=== PATIENT | male | born 1995 | race Caucasian/White ===

== ENCOUNTER 2016-10-25 15:35 | Emergency (ER) | payer MEDICAID, OTHER ==
[2016-10-25 15:45] VITALS: BP 122/57
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
== END 2016-10-25 16:40 | disposition home or self-care (01) ==
LOC: FB.ED 15:35
DX: S62.025A Nondisplaced fracture of middle third of navicular [scaphoid] bone of left wrist, initial encounter for closed fracture (principal); V19.88XA Pedal cyclist (driver) (passenger) injured in other specified transport accidents, initial encounter; Y93.55 Activity, bike riding; Y92.410 Unspecified street and highway as the place of occurrence of the external cause; F17.210 Nicotine dependence, cigarettes, uncomplicated; F41.9 Anxiety disorder, unspecified; Z79.899 Other long term (current) drug therapy
CPT/HCPCS: 29105; 73110-LT; 73130-LT; 99283

== ENCOUNTER 2018-12-17 02:47 | Emergency (ER) | payer SELFPAY ==
--- NOTE | 2018-12-17 04:05 | EDM.PDOC ---
ED HPI GENERAL MEDICAL PROBLEM - General Stated Complaint: mental health Time Seen by Provider: 12/17/18 03:40 Source of Information: Reports: Patient History Limitations: Reports: No Limitations - History of Present Illness INITIAL COMMENTS - FREE TEXT/NARRATIVE: 23-year-old male who is brought to the emergency department via [place] project officer after the sales officer was called to an out of control male with altered sensorium and agitated behavior. According to the police substituted the patient was reported to have been talking about demonic possession and somewhat aggressive toward other people at a get together. The police came and diffuse the situation and was going to take the patient home at this time but the patient explained to the officer that he had PTSD and anxiety and depression and he would like some help at this time. He did not profess any intent to himself or other people but simply wanted to try to get some help. Upon arrival here, the patient is intoxicated but cooperative and calm. I interviewed the patient alone and without the sales officer and he tells me that he remembers going up stairs in his friend's house and he remembers thinking that he wanted to look around and he was concerned that there could be something supernatural there and then he doesn't remember much until the sales officer showed up and then he remembers things beginning at about this time again. Apparently he came down and was talking about demonic possession and speaking in a loud voice and was frightening the people at the house. According to police the people there report that the patient had been drinking alcohol heavily (the patient agrees that he had been drinking alcohol prior to this). The patient did tell the officer that he wanted to talk to somebody about getting some help. He once again tells me that he has no thoughts harming himself or other people and adamantly denies any suicidal thoughts or plan. He denies any pain. He rates his pain as a 0/10. There are no other associated signs or symptoms. There are no other modifying factors. 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) - Related Data Allergies Allergy/AdvReac Type Severity Reaction Status Date / Time No Known Allergies Allergy Verified 10/25/16 15:40 Home Meds: Home Meds Acetaminophen/HYDROcodone [[place] 325-5 MG] 1 tab PO Q4H PRN #14 tab 10/25/16 [Rx ] Ascorbic Acid [Vitamin C] 1,000 mg PO DAILY 10/25/16 [History] [place]-3/DHA/Epa/Fish Oil [Fish Oil 1,000 mg Softgel] 1 cap PO DAILY 10/25/16 [ History] Past Medical History Cardiovascular History: Reports: Hypertension (But on no medication.) Musculoskeletal History: Reports: Fracture Psychiatric History: Reports: Anxiety, Depression, PTSD Social & Family History - Tobacco Use Smoking Status *Q: Current Every Day Smoker - Alcohol Use Alcohol Use History: Yes Alcohol Use Frequency: Daily - Living Situation & Occupation Living situation: Reports: Single Occupation: Employed (Works at [employer]) ED ROS GENERAL - Review of Systems Review Of Systems: See Below Constitutional: Reports: No Symptoms HEENT: Reports: No Symptoms Respiratory: Reports: No Symptoms Cardiovascular: Reports: No Symptoms GI/Abdominal: Reports: No Symptoms : Reports: No Symptoms Musculoskeletal: Reports: No Symptoms Skin: Reports: No Symptoms Neurological: Reports: No Symptoms Psychiatric: Reports: Anxiety, Depression. Denies: Homicidal Ideation, Suicidal Ideation Hematologic/Lymphatic: Reports: No Symptoms Immunologic: Reports: No Symptoms ED EXAM, GENERAL - Physical Exam Exam: See Below Exam Limited By: Uncooperative General Appearance: No Apparent Distress, Other (Intoxicated, cooperative male in no acute distress) Eye Exam: Bilateral Eye: Abnormal EOM (Lateral gaze nystagmus less than 45 bilaterally), Normal Inspection Ears: Normal External Exam Ear Exam: Bilateral Ear: Auricle Normal Nose: Normal Inspection, Normal Mucosa, No Blood Throat/Mouth: Normal Voice, No Airway Compromise, Other (There is an odor of alcohol his breath) Head: Atraumatic, Normocephalic Neck: Normal Inspection, Supple, Non-Tender, Full Range of Motion Respiratory/Chest: No Respiratory Distress, Lungs Clear, Normal Breath Sounds, No Accessory Muscle Use, Chest Non-Tender Cardiovascular: Normal Peripheral Pulses, Regular Rate, Rhythm, No JVD Peripheral Pulses: 2+: Radial (L), Radial (R) GI/Abdominal: Normal Bowel Sounds, Soft, Non-Tender, No Mass, Other (Scaphoid abdomen) Back Exam: Normal Inspection Extremities: Normal Inspection, Normal Range of Motion, Non-Tender, No Pedal Edema, Normal Capillary Refill Neurological: Alert, Oriented, CN II-XII Intact, No Motor/Sensory Deficits Psychiatric: Depressed Mood, Other (Intoxicated) Skin Exam: Warm, Dry, Intact, Normal Color, No Rash Course - Re-Assessments/Exams Free Text/Narrative Re-Assessment/Exam: 12/17/18 03:59: Patient adamantly denies suicidal or homicidal ideation. He is desirous of mental health counseling for help for his PTSD and anxiety/ depression related to this and his alcohol abuse. I will refer him to one of the nurse practitioners who is associated with the walk-in clinic and they can evaluate the patient and act as a gateway to beal the patient's entrance into the mental health system locally. Departure - Departure Time of Disposition: 04:10 Disposition: Home, Self-Care 01 Condition: Fair (Stable) Clinical Impression: Alcohol abuse, Anxiety and depression Acute alcohol intoxication Qualifiers: Complication of substance-induced condition: with unspecified complication Qualified Code(s): F10.929 - Alcohol use, unspecified with intoxication, unspecified - Discharge Information Instructions: Alcohol Use Disorder, Alcohol Intoxication Referrals: Mago Sheriff NP [Nurse Practitioner] - Additional Instructions: Stop drinking alcohol. Rest. I have referred you to Mago Sheriff NP. They should call you to arrange an appointment for you to see her. She will be able to evaluate you and refer you to advise you on the local mental health resources and refer you to someone to begin to help you with your problems with anxiety, depression, post traumatic stress disorder and alcohol abuse. Back to the emergency department for feelings of wanting to harm yourself, any acute medical problem or any other concerning sign or symptom.
[2018-12-17 07:20] VITALS: BP 126/82; PULSE 64
== END 2018-12-17 04:20 | disposition home or self-care (01) ==
LOC: FB.ED 02:47
DX: F10.129 Alcohol abuse with intoxication, unspecified (principal); F41.9 Anxiety disorder, unspecified; F32.9 Major depressive disorder, single episode, unspecified; Y90.9 Presence of alcohol in blood, level not specified; F17.200 Nicotine dependence, unspecified, uncomplicated
CPT/HCPCS: 99282; 99284

== ENCOUNTER 2019-01-17 15:11 | Emergency (ER) | payer BC, OTHER ==
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
[2019-01-17 16:25] LABS: ACETAMINOPHEN < 2 ug/mL (<2)
[2019-01-17] MEDS ORDERED: Folic Acid 1 MG Tab PO ONE (17:17)
[2019-01-17] MEDS: Sodium Chloride 0.9% 1,000 ML IV SCH ×2 (17:35→18:36)
[2019-01-17 19:36] VITALS: BP 123/61; PULSE 93
== END 2019-01-17 19:12 ==
LOC: FB.ED 15:11
DX: F32.9 Major depressive disorder, single episode, unspecified (principal); F10.10 Alcohol abuse, uncomplicated; Y90.1 Blood alcohol level of 20-39 mg/100 ml; R82.998 Other abnormal findings in urine; F41.9 Anxiety disorder, unspecified; I10 Essential (primary) hypertension; Z79.899 Other long term (current) drug therapy
CPT/HCPCS: 36415; 80048; 80305; 84443; 85025; 96360; 96361; 99285; A9270; G0480; J7030; 99284

== ENCOUNTER 2019-07-03 21:59 | Emergency (ER) | payer SELFPAY ==
[2019-07-03] MEDS ORDERED: Sodium Chloride 0.9% 10 ML Syringe FLUSH PRN (22:08)
[2019-07-03] MEDS ORDERED: Sodium Chloride 0.9% 1,000 ML IV ONE (22:08)
--- NOTE | 2019-07-03 22:24 | EDM.PDOCBH ---
ED HPI GENERAL MEDICAL PROBLEM - General Chief Complaint: Behavioral/Psych Stated Complaint: SI Time Seen by Provider: 07/03/19 22:12 Source of Information: Reports: Patient, Police History Limitations: Reports: Intoxication - History of Present Illness INITIAL COMMENTS - FREE TEXT/NARRATIVE: Patient has a h/o depression and has been drinking alcohol this evening. He is brought to the ED this evening for suicidal ideation. Patient stated to a friend that he wanted to harm himself, who called the police. Patient does admit having these thoughts this evening, but refuses to elaborate further. He has been treated in the ED previously for the same complaint, was transferred to [facility] 01/2019 for suicidal ideation. Onset: Today - Related Data Allergies Allergy/AdvReac Type Severity Reaction Status Date / Time No Known Allergies Allergy Verified 07/04/19 07:43 Home Meds: Home Meds Escitalopram [Lexapro] 10 mg PO DAILY 01/17/19 [History] Past Medical History HEENT History: Reports: Other (See Below) Other HEENT History: States [place] Teeth are bothersome. Cardiovascular History: Reports: Hypertension (But on no medication.) Musculoskeletal History: Reports: Fracture Other Musculoskeletal History: States history of rib fracture, and left and right arm fractures. Psychiatric History: Reports: Anxiety, Depression, PTSD, Suicide Attempt, Suicidal Ideation Social & Family History - Alcohol Use Alcohol Use History: Yes Alcohol Use in Last Twelve Months: Yes Alcohol Use Frequency: Binges - Living Situation & Occupation Living situation: Reports: Single Occupation: Employed (Works at [employer] ED ROS GENERAL - Review of Systems Review Of Systems: Comprehensive ROS is negative, except as noted in HPI. ED EXAM, BEHAVIORAL HEALTH - Physical Exam Exam: See Below Exam Limited By: Combative/Threatening General Appearance: Alert, WD/WN, No Apparent Distress Eye Exam: Bilateral Eye: EOMI, PERRL Ears: Normal External Exam Throat/Mouth: No Airway Compromise Head: Atraumatic, Normocephalic Neck: Full Range of Motion Respiratory/Chest: No Respiratory Distress, Lungs Clear, Normal Breath Sounds Cardiovascular: Regular Rate, Rhythm, No Murmur Extremities: Normal Range of Motion Neurological: Alert, No Motor/Sensory Deficits, Oriented x 3 Psychiatric: Alert, Agitated, Uncooperative, Suicidal Thoughts Skin Exam: Warm, Dry, Intact COURSE, BEHAVIORAL HEALTH COMP - Course Vital Signs: Last Vital Signs Temp 36.4 C 07/03/19 22:10 Pulse 60 07/04/19 03:05 Resp 18 07/04/19 03:05 BP 115/81 07/04/19 03:05 Pulse Ox 98 07/04/19 03:05 Orders, Labs, Meds: Active Orders 24 hr Category Date Time Status Sodium Chloride 0.9% [Normal Saline] 1,000 ml Med 07/04/19 03:15 Active IV ASDIRECTED Sodium Chloride 0.9% [Saline Flush] Med 07/03/19 22:08 Active 10 ml FLUSH ASDIRECTED PRN Saline Lock Insert [OM.PC] Routine Oth 07/03/19 22:08 Ordered Medication Orders Sodium Chloride (Normal Saline) 1,000 mls @ 100 mls/hr IV ASDIRECTED JENIFER Last Admin: 07/04/19 03:15 Dose: 100 mls/hr Sodium Chloride (Saline Flush) 10 ml FLUSH ASDIRECTED PRN PRN Reason: Keep Vein Open Laboratory Tests 07/03/19 07/03/19 07/03/19 Range/Units 22:17 22:17 22:17 WBC 11.6 (4.5-12.0) X10-3/uL RBC 5.01 (4.30-5.75) x10(6)uL Hgb 16.0 (13.5-17.8) g/dL Hct 45.9 (30.0-51.3) % MCV 91.7 (80-96) fL MCH 32.0 (27.7-33.6) pg MCHC 34.8 (32.2-35.4) g/dL RDW 12.2 (11.5-15.5) % Plt Count 297 (125-369) X10(3)uL MPV 8.1 (7.4-10.4) fL Neut % (Auto) 51.1 (46-82) % Lymph % (Auto) 41.6 H (13-37) % [place] % (Auto) 6.3 (4-12) % Eos % (Auto) 1 (1.0-5.0) % Baso % (Auto) 0 (0-2) % Neut # (Auto) 6.0 (1.6-8.3) # Lymph # (Auto) 4.8 (0.6-5.0) # [place] # (Auto) 0.7 (0.0-1.3) # Eos # (Auto) 0.1 (0.0-0.8) # Baso # (Auto) 0.0 (0.0-0.2) # Sodium 140 (135-145) mmol/L Potassium 4.1 (3.5-5.3) mmol/L Chloride 103 (100-110) mmol/L Carbon Dioxide 24 (21-32) mmol/L BUN 9 (7-18) mg/dL Creatinine 1.0 (0.70-1.30) mg/dL Est Cr Clr Drug Dosing TNP Estimated GFR (MDRD) > 60 (>60) BUN/Creatinine Ratio 9.0 (9-20) Glucose 124 H (80-116) mg/dL Calcium 8.7 (8.6-10.2) mg/dL Magnesium (1.8-2.5) mg/dL Total Bilirubin 0.3 (0.1-1.3) mg/dL AST 48 H (5-25) IU/L ALT 24 (12-36) U/L Alkaline Phosphatase 75 (56-112) IU/L Total Protein 8.0 (6.0-8.0) g/dL Albumin 4.9 (3.5-5.2) g/dL Globulin 3.1 g/dL Albumin/Globulin Ratio 1.6 TSH, Ultra Sensitive 0.87 (0.36-3.74) IU/mL Urine Color (YELLOW) Urine Appearance (CLEAR) Urine pH (5.0-6.5) Ur Specific [place] (1.010-1.025) Urine Protein (NEGATIVE) mg/dL Urine Glucose (UA) (NORMAL) mg/dL Urine Ketones (NEGATIVE) mg/dL Urine Occult Blood (NEGATIVE) Urine Nitrite (NEGATIVE) Urine Bilirubin (NEGATIVE) Urine Urobilinogen (NEGATIVE) mg/dL Ur Leukocyte Esterase (NEGATIVE) Urine RBC (0-5) Urine WBC (0-5) Ur Squamous Epith Cells (NS,R,O) Urine Bacteria (NS) Salicylates 2.0 L (<2.8) mg/dL Urine Opiates Screen (NEGATIVE) Ur Oxycodone Screen (NEGATIVE) Ur Propoxyphene Screen (NEGATIVE) Acetaminophen < 2 L (<2) ug/mL Ur Barbituates Screen (NEGATIVE) Ur Tricyclics Screen (NEGATIVE) Ur Phencyclidine Scrn (NEGATIVE) Ur Amphetamine Screen (NEGATIVE) Urine MDMA Screen (NEGATIVE) U Benzodiazepines Scrn (NEGATIVE) U Cocaine Metab Screen (NEGATIVE) U Marijuana (THC) Screen (NEGATIVE) Ethyl Alcohol 0.43 H* (<0.03) % 07/03/19 07/03/19 07/03/19 Range/Units 22:17 22:25 22:25 WBC (4.5-12.0) X10-3/uL RBC (4.30-5.75) x10(6)uL Hgb (13.5-17.8) g/dL Hct (30.0-51.3) % MCV (80-96) fL MCH (27.7-33.6) pg MCHC (32.2-35.4) g/dL RDW (11.5-15.5) % Plt Count (125-369) X10(3)uL MPV (7.4-10.4) fL Neut % (Auto) (46-82) % Lymph % (Auto) (13-37) % [place] % (Auto) (4-12) % Eos % (Auto) (1.0-5.0) % Baso % (Auto) (0-2) % Neut # (Auto) (1.6-8.3) # Lymph # (Auto) (0.6-5.0) # [place] # (Auto) (0.0-1.3) # Eos # (Auto) (0.0-0.8) # Baso # (Auto) (0.0-0.2) # Sodium (135-145) mmol/L Potassium (3.5-5.3) mmol/L Chloride (100-110) mmol/L Carbon Dioxide (21-32) mmol/L BUN (7-18) mg/dL Creatinine (0.70-1.30) mg/dL Est Cr Clr Drug Dosing Estimated GFR (MDRD) (>60) BUN/Creatinine Ratio (9-20) Glucose (80-116) mg/dL Calcium (8.6-10.2) mg/dL Magnesium 2.3 (1.8-2.5) mg/dL Total Bilirubin (0.1-1.3) mg/dL AST (5-25) IU/L ALT (12-36) U/L Alkaline Phosphatase (56-112) IU/L Total Protein (6.0-8.0) g/dL Albumin (3.5-5.2) g/dL Globulin g/dL Albumin/Globulin Ratio TSH, Ultra Sensitive (0.36-3.74) IU/mL Urine Color Yellow (YELLOW) Urine Appearance Clear (CLEAR) Urine pH 6.5 (5.0-6.5) Ur Specific [place] 1.005 L (1.010-1.025) Urine Protein Negative (NEGATIVE) mg/dL Urine Glucose (UA) Normal (NORMAL) mg/dL Urine Ketones Negative (NEGATIVE) mg/dL Urine Occult Blood Negative (NEGATIVE) Urine Nitrite Negative (NEGATIVE) Urine Bilirubin Negative (NEGATIVE) Urine Urobilinogen Normal (NEGATIVE) mg/dL Ur Leukocyte Esterase Negative (NEGATIVE) Urine RBC 0-5 (0-5) Urine WBC 0-5 (0-5) Ur Squamous Epith Cells Rare (NS,R,O) Urine Bacteria Occasional H (NS) Salicylates (<2.8) mg/dL Urine Opiates Screen Negative (NEGATIVE) Ur Oxycodone Screen Negative (NEGATIVE) Ur Propoxyphene Screen Negative (NEGATIVE) Acetaminophen (<2) ug/mL Ur Barbituates Screen Negative (NEGATIVE) Ur Tricyclics Screen Negative (NEGATIVE) Ur Phencyclidine Scrn Negative (NEGATIVE) Ur Amphetamine Screen Negative (NEGATIVE) Urine MDMA Screen Negative (NEGATIVE) U Benzodiazepines Scrn Negative (NEGATIVE) U Cocaine Metab Screen Negative (NEGATIVE) U Marijuana (THC) Screen Negative (NEGATIVE) Ethyl Alcohol (<0.03) % 07/04/19 07/04/19 Range/Units 05:35 08:55 WBC (4.5-12.0) X10-3/uL RBC (4.30-5.75) x10(6)uL Hgb (13.5-17.8) g/dL Hct (30.0-51.3) % MCV (80-96) fL MCH (27.7-33.6) pg MCHC (32.2-35.4) g/dL RDW (11.5-15.5) % Plt Count (125-369) X10(3)uL MPV (7.4-10.4) fL Neut % (Auto) (46-82) % Lymph % (Auto) (13-37) % [place] % (Auto) (4-12) % Eos % (Auto) (1.0-5.0) % Baso % (Auto) (0-2) % Neut # (Auto) (1.6-8.3) # Lymph # (Auto) (0.6-5.0) # [place] # (Auto) (0.0-1.3) # Eos # (Auto) (0.0-0.8) # Baso # (Auto) (0.0-0.2) # Sodium (135-145) mmol/L Potassium (3.5-5.3) mmol/L Chloride (100-110) mmol/L Carbon Dioxide (21-32) mmol/L BUN (7-18) mg/dL Creatinine (0.70-1.30) mg/dL Est Cr Clr Drug Dosing Estimated GFR (MDRD) (>60) BUN/Creatinine Ratio (9-20) Glucose (80-116) mg/dL Calcium (8.6-10.2) mg/dL Magnesium (1.8-2.5) mg/dL Total Bilirubin (0.1-1.3) mg/dL AST (5-25) IU/L ALT (12-36) U/L Alkaline Phosphatase (56-112) IU/L Total Protein (6.0-8.0) g/dL Albumin (3.5-5.2) g/dL Globulin g/dL Albumin/Globulin Ratio TSH, Ultra Sensitive (0.36-3.74) IU/mL Urine Color (YELLOW) Urine Appearance (CLEAR) Urine pH (5.0-6.5) Ur Specific [place] (1.010-1.025) Urine Protein (NEGATIVE) mg/dL Urine Glucose (UA) (NORMAL) mg/dL Urine Ketones (NEGATIVE) mg/dL Urine Occult Blood (NEGATIVE) Urine Nitrite (NEGATIVE) Urine Bilirubin (NEGATIVE) Urine Urobilinogen (NEGATIVE) mg/dL Ur Leukocyte Esterase (NEGATIVE) Urine RBC (0-5) Urine WBC (0-5) Ur Squamous Epith Cells (NS,R,O) Urine Bacteria (NS) Salicylates (<2.8) mg/dL Urine Opiates Screen (NEGATIVE) Ur Oxycodone Screen (NEGATIVE) Ur Propoxyphene Screen (NEGATIVE) Acetaminophen (<2) ug/mL Ur Barbituates Screen (NEGATIVE) Ur Tricyclics Screen (NEGATIVE) Ur Phencyclidine Scrn (NEGATIVE) Ur Amphetamine Screen (NEGATIVE) Urine MDMA Screen (NEGATIVE) U Benzodiazepines Scrn (NEGATIVE) U Cocaine Metab Screen (NEGATIVE) U Marijuana (THC) Screen (NEGATIVE) Ethyl Alcohol 0.26 H* 0.20 H* (<0.03) % Medications Generic Name Dose Route Start Last Admin Trade Name Freq PRN Reason Stop Dose Admin Sodium Chloride 1,000 mls @ 100 mls/hr 07/04/19 03:15 07/04/19 03:15 Normal Saline IV 100 mls/hr ASDIRECTED JENIFER Administration Sodium Chloride 10 ml 07/03/19 22:08 Saline Flush FLUSH ASDIRECTED PRN Keep Vein Open Discontinued Medications Generic Name Dose Route Start Last Admin Trade Name Freq PRN Reason Stop Dose Admin Haloperidol Lactate 5 mg 07/03/19 22:43 07/03/19 22:50 Haldol IM 07/03/19 22:44 5 mg ONETIME ONE Administration Sodium Chloride 1,000 mls @ 999 mls/hr 07/03/19 22:08 07/03/19 23:05 Normal Saline IV 07/03/19 23:08 999 mls/hr .BOLUS ONE Administration Sodium Chloride 1,000 mls @ 500 mls/hr 07/04/19 00:59 07/04/19 01:00 Normal Saline IV 07/04/19 02:58 500 mls/hr .BOLUS ONE Administration Thiamine HCl 100 mg 07/03/19 22:45 07/03/19 23:15 Vitamin B-1 IVPUSH 07/03/19 22:46 100 mg ONETIME ONE Administration Re-Assessment/Re-Exam: Patient placed on a [place] Emergency Hold on 07/03/19 at 22:10 Patient became aggressive toward policemen, who restrained all four extremities to the ED cart using handcuffs. He was given Haldol 5mg IM @2250 due to aggression. Handcuffs transitioned to 4-pt velcro restraints at 23:30. Patient cooperative, restraints discontinued on 07/04/19 at 07:30. 08:55 EtOH level improved to 0.2. Patient continues to have suicidal thoughts @09:30. Medical Clearance: 07/04/19 11:20 Patient is medically cleared for psychiatric evaluation and treatment. Discharge vs Psych Eval/Treatment:: 07/04/19 12:31 Dr. Castro accepts transfer to [facility], will transport by S ground. Departure - Departure Time of Disposition: 12:31 Disposition: DC/Tfer to Psych Hosp/Unit 65 Condition: Fair Clinical Impression: Suicidal ideation Alcohol intoxication Qualifiers: Complication of substance-induced condition: uncomplicated Qualified Code(s): F10.920 - Alcohol use, unspecified with intoxication, uncomplicated - Discharge Information *PRESCRIPTION DRUG MONITORING PROGRAM REVIEWED*: Yes *COPY OF PRESCRIPTION DRUG MONITORING REPORT IN PATIENT DARREN: No Referrals: PCP,None [Primary Care Provider] - Forms: ED Department Discharge Sepsis Event Note - Focused Exam Vital Signs: Vital Signs Pulse Resp BP Pulse Ox 07/04/19 03:05 60 18 115/81 98 Date Exam was Performed: 07/04/19 Time Exam was Performed: 12:30 - My Orders Last 24 Hours: My Active Orders 07/03/19 22:08 Sodium Chloride 0.9% [Saline Flush] 10 ml FLUSH ASDIRECTED PRN Saline Lock Insert [OM.PC] Routine 07/04/19 03:15 Sodium Chloride 0.9% [Normal Saline] 1,000 ml IV ASDIRECTED - Assessment/Plan Last 24 Hours: My Active Orders 07/03/19 22:08 Sodium Chloride 0.9% [Saline Flush] 10 ml FLUSH ASDIRECTED PRN Saline Lock Insert [OM.PC] Routine 07/04/19 03:15 Sodium Chloride 0.9% [Normal Saline] 1,000 ml IV ASDIRECTED
[2019-07-03 22:42] LABS: ACETAMINOPHEN < 2 ug/mL (<2)
[2019-07-03] MEDS ORDERED: Haloperidol Lactate 5 MG/ML SDV IM ONE (22:43)
[2019-07-03] MEDS ORDERED: Thiamine 200 MG/2 ML MDV IVPUSH ONE (22:45)
[2019-07-04] MEDS ORDERED: Sodium Chloride 0.9% 1,000 ML IV ONE (00:59)
[2019-07-04] MEDS ORDERED: Sodium Chloride 0.9% 1,000 ML IV SCH (03:15)
[2019-07-04 21:08] VITALS: BP 112/61; PULSE 80
== END 2019-07-04 12:57 ==
LOC: FB.ED 21:59
DX: R45.851 Suicidal ideations (principal); F19.99 Other psychoactive substance use, unspecified with unspecified psychoactive substance-induced disorder; I10 Essential (primary) hypertension; F10.120 Alcohol abuse with intoxication, uncomplicated; Y90.0 Blood alcohol level of less than 20 mg/100 ml; F41.9 Anxiety disorder, unspecified; F32.9 Major depressive disorder, single episode, unspecified; Z79.899 Other long term (current) drug therapy; Z78.1 Physical restraint status
CPT/HCPCS: 36415; 80053; 80305-QW; 81001; 83735; 84443; 85025; 99284; G0480; J1630; J3411; J7030

== ENCOUNTER 2019-07-15 15:15 | Emergency (ER) | payer SELFPAY ==
--- NOTE | 2019-07-15 15:33 | EDM.PDOCBH ---
ED HPI GENERAL MEDICAL PROBLEM - General Stated Complaint: SOB,DIZZINES Time Seen by Provider: 07/15/19 15:20 Source of Information: Reports: Significant Other History Limitations: Reports: No Limitations - History of Present Illness INITIAL COMMENTS - FREE TEXT/NARRATIVE: sent in from urgent care . was discharge from [facility] 2 days ago , did not fill scripts till friday and took dose yesterday: states he felt ill after taking the medications and then decided not to take them at all and since then has been having tremors but seems as if he is withdrawing from his medications , since he missed taking them for 48 hrs has no fever chills no suicidal thoughts states he is concerned about taking too much medication Onset: Today Onset Date: 07/15/19 Duration: Getting Worse - Related Data Allergies Allergy/AdvReac Type Severity Reaction Status Date / Time No Known Allergies Allergy Verified 07/15/19 15:45 Home Meds: Home Meds DULoxetine [Cymbalta] 90 mg PO DAILY 07/15/19 [History] Eszopiclone [Lunesta] 3 mg PO BEDTIME 07/15/19 [History] Naltrexone 50 mg PO DAILY 07/15/19 [History] Prazosin HCl [Prazosin] 3 mg PO BEDTIME 07/15/19 [History] Propranolol HCl 20 mg PO TID 07/15/19 [History] QUEtiapine [SEROquel] 200 mg PO BEDTIME 07/15/19 [History] Past Medical History HEENT History: Reports: Other (See Below) Other HEENT History: States [place] Teeth are bothersome. Cardiovascular History: Reports: Hypertension (But on no medication.) Musculoskeletal History: Reports: Fracture Other Musculoskeletal History: States history of rib fracture, and left and right arm fractures. Psychiatric History: Reports: Anxiety, Depression, PTSD, Suicide Attempt, Suicidal Ideation Other Psychiatric History: Alcohol abuse. Social & Family History - Living Situation & Occupation Living situation: Reports: Single Occupation: Employed (Works at [employer] ED ROS GENERAL - Review of Systems Review Of Systems: Comprehensive ROS is negative, except as noted in HPI. ED EXAM, BEHAVIORAL HEALTH - Physical Exam Exam: See Below Exam Limited By: No Limitations General Appearance: Alert, WD/WN, No Apparent Distress Eye Exam: Bilateral Eye: EOMI Throat/Mouth: Normal Inspection, Normal Oropharynx Head: Atraumatic, Normocephalic Neck: Supple, Non-Tender, Full Range of Motion Respiratory/Chest: No Respiratory Distress GI/Abdominal: Soft, Non-Tender Extremities: Normal Range of Motion, Non-Tender Neurological: Alert, Normal Mood/Affect, Normal Cognition, Oriented x 3 Psychiatric: Depressed Mood, Flat Affect, Poor Eye Contact, Paranoid Thoughts. No: Suicidal Plan, Suicidal Thoughts, Visual Hallucinations Skin Exam: Warm, Intact COURSE, BEHAVIORAL HEALTH COMP - Course Orders, Labs, Meds: Active Orders 24 hr Category Date Time Status DRUG SCREEN, URINE ALERE [URCHEM] Stat Lab 07/15/19 15:28 Ordered Sodium Chloride 0.9% [Normal Saline] 1,000 ml Med 07/15/19 15:45 Active IV ASDIRECTED Medication Orders Sodium Chloride (Normal Saline) 1,000 mls @ 999 mls/hr IV ASDIRECTED JENIFER Laboratory Tests 07/15/19 07/15/19 07/15/19 Range/Units 14:55 14:55 14:55 WBC 11.9 (4.5-12.0) X10-3/uL RBC 4.58 (4.30-5.75) x10(6)uL Hgb 14.3 (13.5-17.8) g/dL Hct 42.0 (30.0-51.3) % MCV 91.8 (80-96) fL MCH 31.3 (27.7-33.6) pg MCHC 34.1 (32.2-35.4) g/dL RDW 12.4 (11.5-15.5) % Plt Count 366 (125-369) X10(3)uL MPV 8.1 (7.4-10.4) fL Neut % (Auto) 54.5 (46-82) % Lymph % (Auto) 31.1 (13-37) % [place] % (Auto) 12.2 H (4-12) % Eos % (Auto) 2 (1.0-5.0) % Baso % (Auto) 1 (0-2) % Neut # (Auto) 6.4 (1.6-8.3) # Lymph # (Auto) 3.7 (0.6-5.0) # [place] # (Auto) 1.5 H (0.0-1.3) # Eos # (Auto) 0.2 (0.0-0.8) # Baso # (Auto) 0.1 (0.0-0.2) # Sodium 142 (135-145) mmol/L Potassium 4.3 (3.5-5.3) mmol/L Chloride 104 (100-110) mmol/L Carbon Dioxide 25 (21-32) mmol/L BUN 9 (7-18) mg/dL Creatinine 1.0 (0.70-1.30) mg/dL Est Cr Clr Drug Dosing TNP Estimated GFR (MDRD) > 60 (>60) BUN/Creatinine Ratio 9.0 (9-20) Glucose 97 (80-116) mg/dL Calcium 9.6 (8.6-10.2) mg/dL Ethyl Alcohol < 0.03 (<0.03) % Medications Generic Name Dose Route Start Last Admin Trade Name Freq PRN Reason Stop Dose Admin Sodium Chloride 1,000 mls @ 999 mls/hr 07/15/19 15:45 Normal Saline IV ASDIRECTED JENIFER Discontinued Medications Generic Name Dose Route Start Last Admin Trade Name Freq PRN Reason Stop Dose Admin Duloxetine HCl 90 mg 07/15/19 15:38 07/15/19 16:11 Cymbalta PO 07/15/19 15:39 90 mg NOW STA Administration Naltrexone HCl 50 mg 07/15/19 15:38 07/15/19 16:11 Naltrexone PO 07/15/19 15:39 50 mg NOW STA Administration Propranolol HCl 20 mg 07/15/19 15:37 07/15/19 16:11 Inderal PO 07/15/19 15:38 20 mg ONETIME ONE Administration Departure - Departure Time of Disposition: 17:35 Disposition: Home, Self-Care 01 Condition: Fair Clinical Impression: Anxiety and depression, Withdrawal syndrome - Discharge Information *PRESCRIPTION DRUG MONITORING PROGRAM REVIEWED*: Not Applicable *COPY OF PRESCRIPTION DRUG MONITORING REPORT IN PATIENT DARREN: Not Applicable Instructions: Major Depressive Disorder, Adult, [id number] Referrals: PCP,None [Primary Care Provider] - Additional Instructions: Keep appointment with PCP Take medications as prescribed If any concerns ,OK to return to the ER Sepsis Event Note - Focused Exam Date Exam was Performed: 07/15/19 Time Exam was Performed: 17:32 - My Orders Last 24 Hours: My Active Orders 07/15/19 15:28 DRUG SCREEN, URINE ALERE [URCHEM] Stat 07/15/19 15:45 Sodium Chloride 0.9% [Normal Saline] 1,000 ml IV ASDIRECTED - Assessment/Plan Last 24 Hours: My Active Orders 07/15/19 15:28 DRUG SCREEN, URINE ALERE [URCHEM] Stat 07/15/19 15:45 Sodium Chloride 0.9% [Normal Saline] 1,000 ml IV ASDIRECTED
[2019-07-15] MEDS ORDERED: Propranolol 20 MG Tab PO ONE (15:37)
[2019-07-15] MEDS ORDERED: Naltrexone 50 MG Tab PO STA (15:38)
[2019-07-15] MEDS ORDERED: DULoxetine 30 MG Cap PO STA (15:38)
[2019-07-15] MEDS ORDERED: Sodium Chloride 0.9% 1,000 ML IV SCH (15:45)
[2019-07-15 19:05] VITALS: BP 136/67; PULSE 65
== END 2019-07-15 17:50 | disposition home or self-care (01) ==
LOC: FB.ED 15:15
DX: F19.930 Other psychoactive substance use, unspecified with withdrawal, uncomplicated (principal); I10 Essential (primary) hypertension; F41.9 Anxiety disorder, unspecified; F32.9 Major depressive disorder, single episode, unspecified; Z79.899 Other long term (current) drug therapy
CPT/HCPCS: 36415; 80048; 85025; 96360; 99283; 99284-25; A9270-GY; G0480; J7030

== ENCOUNTER 2020-05-28 05:14 | Emergency (ER) | payer SELFPAY ==
[2020-05-28] MEDS ORDERED: Ondansetron 4 MG/2 ML SDV IVPUSH ONE (05:35)
[2020-05-28] MEDS ORDERED: Sodium Chloride 0.9% 1,000 ML IV ONE (05:35)
[2020-05-28] MEDS ORDERED: Morphine 4 MG/ML VIAL IVPUSH ONE (05:36)
[2020-05-28] MEDS ORDERED: Pantoprazole 40 MG Vial IVPUSH ONE (05:36)
[2020-05-28] MEDS ORDERED: Sodium Chloride 0.9% 10 ML Syringe FLUSH PRN (06:02)
[2020-05-28] MEDS ORDERED: Iopamidol 755 Mg/ML 100 ML Bottle IV ONE (06:05)
[2020-05-28] MEDS ORDERED: HYDROmorphone 2 MG/ML SDV IVPUSH ONE (06:49)
--- NOTE | 2020-05-28 07:00 | EDM.PDOC ---
<JalilOlman rogers - Last Filed: 05/28/20 08:35> ED HPI GENERAL MEDICAL PROBLEM - General Chief Complaint: Abdominal Pain Stated Complaint: throwing up blood Time Seen by Provider: 05/28/20 06:56 - Related Data Allergies Allergy/AdvReac Type Severity Reaction Status Date / Time No Known Allergies Allergy Verified 05/28/20 05:25 Home Meds: Home Meds Sertraline [Zoloft] 25 mg DAILY 05/28/20 [History] busPIRone [Buspar] 10 mg PO TID 05/28/20 [History] Course - Vital Signs Text/Narrative:: pt care was transferred from Dr Larkin at time of shift change , labs/CT results were explained to pt. pt feels better after fluids, zofran and Dilaudid also Protonix but epigastric pain is still there, pt has no signs of acute abd on repeat exam and labs are unremarkable except for mild dehydration and mildly elevated wbc . pt has alcohol related gastritis , pt was asked to stop any alcohol use and foll ow with a chemical dependancy treatment program, pt to maintain good hydration , start OTC prilosec 40 mg daily , and may use ocer the counter antacids as directed . pt is not showing any signs of DTs, pt to follow with PCP in 1 week. Departure - Departure Time of Disposition: 08:46 Disposition: Home, Self-Care 01 Clinical Impression: Gastritis - Discharge Information Instructions: Gastritis, Adult, Alcohol Abuse and Nutrition, Omeprazole tablets (OTC) Referrals: PCP,None [Primary Care Provider] - Forms: ED Department Discharge <Jeff Kramer - Last Filed: 05/31/20 19:12> ED HPI GENERAL MEDICAL PROBLEM - General Source of Information: Reports: Patient History Limitations: Reports: No Limitations - History of Present Illness INITIAL COMMENTS - FREE TEXT/NARRATIVE: 25 yo male with abdominal pain for 2 hrs. Had been drinking when the pain started,which he rates to be severe,associated with vomiting blood. It is located in the epigastrium,but radiates to the right lower quadrant. Nothing helps.He is known to have a h/o ETOH abuse. Epigastric pain Pain Score (Numeric/FACES): 6 Past Medical History HEENT History: Reports: Other (See Below) Other HEENT History: States [place] Teeth are bothersome. Cardiovascular History: Reports: Hypertension Gastrointestinal History: Reports: Other (See Below) Other Gastrointestinal History: has had liver problems from drinking in past Genitourinary History: Reports: Other (See Below) Other Genitourinary History: states has had kidney problems from drinking in past Musculoskeletal History: Reports: Fracture Other Musculoskeletal History: States history of rib fracture, and left and right arm, fx toes, L wrist, R wrist, fingers fractures. Neurological History: Reports: Seizure Psychiatric History: Reports: Anxiety, Depression, Psych Hospitalization(s), PTSD, Suicide Attempt, Suicidal Ideation Other Psychiatric History: Alcohol abuse, has been in tx x 1 Dermatologic History: Reports: Eczema - Past Surgical History Musculoskeletal Surgical History: Reports: None Social & Family History - Family History Family Medical History: No Pertinent Family History - Tobacco Use Tobacco Use Status *Q: Current Every Day Tobacco User Years of Tobacco use: 11 Packs/Tins Daily: 1 - Alcohol Use Days Per Week of Alcohol Use: 7 Number of Drinks Per Day: 15 Total Drinks Per Week: 105 - Recreational Drug Use Recreational Drug Use: No - Living Situation & Occupation Living situation: Reports: Single Occupation: Employed (Works at [employer]) ED ROS GENERAL - Review of Systems Review Of Systems: Comprehensive ROS is negative, except as noted in HPI. ED EXAM, GI/ABD - Physical Exam Exam: See Below Exam Limited By: No Limitations General Appearance: Alert, WD/WN, No Apparent Distress Head: Atraumatic Neck: Normal Inspection Respiratory/Chest: No Respiratory Distress GI/Abdominal Exam: Normal Bowel Sounds, Soft, Tender (RLQ) Back Exam: Normal Inspection Psychiatric: Normal Affect Skin Exam: Warm Course - Vital Signs Last Recorded V/S: Last Vital Signs Temp 97.6 F 05/28/20 05:14 Pulse 89 05/28/20 07:01 Resp 18 05/28/20 07:01 BP 131/74 05/28/20 07:01 Pulse Ox 100 05/28/20 07:01 - Orders/Labs/Meds Labs: Laboratory Tests 05/28/20 05/28/20 05/28/20 Range/Units 05:25 05:25 05:25 WBC 13.5 H (3.2-10.1) x10-3/uL RBC 4.68 (3.90-5.90) x10(6)uL Hgb 14.2 (12.9-17.7) g/dL Hct 42.3 (38.3-50.1) % MCV 90.6 (80.8-98.7) fL MCH 30.3 (27.0-33.3) pg MCHC 33.5 (28.7-35.3) g/dL RDW 13.9 (12.4-15.0) % Plt Count 252 (117-477) x10(3)uL MPV 8.7 (6.7-11.0) fL Neut % (Auto) 56.3 (40.3-71.8) % Lymph % (Auto) 33.2 (15.8-45.3) % [place] % (Auto) 8.5 (5.5-15.2) % Eos % (Auto) 1.5 (0.1-6.8) % Baso % (Auto) 0.5 (0.3-3.8) % Neut # (Auto) 7.6 H (1.7-6.9) x10-3/uL Lymph # (Auto) 4.5 (0.5-4.5) x10-3/uL [place] # (Auto) 1.2 (0.0-1.2) x10-3/uL Eos # (Auto) 0.2 (0.0-0.6) x10-3/uL Baso # (Auto) 0.1 (0.0-0.3) x10-3/uL Sodium 138 (135-145) mmol/L Potassium 3.7 (3.5-5.3) mmol/L Chloride 99 L D (100-110) mmol/L Carbon Dioxide 27 (21-32) mmol/L BUN 7 (7-18) mg/dL Creatinine 0.8 (0.70-1.30) mg/dL Est Cr Clr Drug Dosing 97.88 mL/min Estimated GFR (MDRD) > 60 (>60) BUN/Creatinine Ratio 8.8 L (9-20) Glucose 109 (80-116) mg/dL Calcium 7.9 L (8.6-10.2) mg/dL Total Bilirubin 0.3 (0.1-1.3) mg/dL AST 27 H D (5-25) IU/L ALT 26 (12-36) U/L Alkaline Phosphatase 79 (56-112) IU/L Total Protein 7.2 (6.0-8.0) g/dL Albumin 4.0 (3.5-5.2) g/dL Globulin 3.2 g/dL Albumin/Globulin Ratio 1.3 Amylase 69 (25-115) U/L Lipase (73-393) U/L Urine Color (YELLOW) Urine Appearance (CLEAR) Urine pH (5.0-6.5) Ur Specific [place] (1.010-1.025) Urine Protein (NEGATIVE) mg/dL Urine Glucose (UA) (NORMAL) mg/dL Urine Ketones (NEGATIVE) mg/dL Urine Occult Blood (NEGATIVE) Urine Nitrite (NEGATIVE) Urine Bilirubin (NEGATIVE) Urine Urobilinogen (NEGATIVE) mg/dL Ur Leukocyte Esterase (NEGATIVE) Ur Squamous Epith Cells (NS,R,O) Urine Bacteria (NS) Ethyl Alcohol (<0.03) % SARS-CoV-2 RNA (RONAN) (NEGATIVE) 05/28/20 05/28/20 05/28/20 Range/Units 05:25 07:18 07:30 WBC (3.2-10.1) x10-3/uL RBC (3.90-5.90) x10(6)uL Hgb (12.9-17.7) g/dL Hct (38.3-50.1) % MCV (80.8-98.7) fL MCH (27.0-33.3) pg MCHC (28.7-35.3) g/dL RDW (12.4-15.0) % Plt Count (117-477) x10(3)uL MPV (6.7-11.0) fL Neut % (Auto) (40.3-71.8) % Lymph % (Auto) (15.8-45.3) % [place] % (Auto) (5.5-15.2) % Eos % (Auto) (0.1-6.8) % Baso % (Auto) (0.3-3.8) % Neut # (Auto) (1.7-6.9) x10-3/uL Lymph # (Auto) (0.5-4.5) x10-3/uL [place] # (Auto) (0.0-1.2) x10-3/uL Eos # (Auto) (0.0-0.6) x10-3/uL Baso # (Auto) (0.0-0.3) x10-3/uL Sodium (135-145) mmol/L Potassium (3.5-5.3) mmol/L Chloride (100-110) mmol/L Carbon Dioxide (21-32) mmol/L BUN (7-18) mg/dL Creatinine (0.70-1.30) mg/dL Est Cr Clr Drug Dosing mL/min Estimated GFR (MDRD) (>60) BUN/Creatinine Ratio (9-20) Glucose (80-116) mg/dL Calcium (8.6-10.2) mg/dL Total Bilirubin (0.1-1.3) mg/dL AST (5-25) IU/L ALT (12-36) U/L Alkaline Phosphatase (56-112) IU/L Total Protein (6.0-8.0) g/dL Albumin (3.5-5.2) g/dL Globulin g/dL Albumin/Globulin Ratio Amylase (25-115) U/L Lipase 201 (73-393) U/L Urine Color Yellow (YELLOW) Urine Appearance Clear (CLEAR) Urine pH 7.0 H (5.0-6.5) Ur Specific [place] 1.010 (1.010-1.025) Urine Protein Negative (NEGATIVE) mg/dL Urine Glucose (UA) Normal (NORMAL) mg/dL Urine Ketones Negative (NEGATIVE) mg/dL Urine Occult Blood Negative (NEGATIVE) Urine Nitrite Negative (NEGATIVE) Urine Bilirubin Negative (NEGATIVE) Urine Urobilinogen Normal (NEGATIVE) mg/dL Ur Leukocyte Esterase Negative (NEGATIVE) Ur Squamous Epith Cells Rare (NS,R,O) Urine Bacteria Rare H (NS) Ethyl Alcohol 0.29 H* (<0.03) % SARS-CoV-2 RNA (RONAN) Negative (NEGATIVE) Meds: Medications Discontinued Medications Generic Name Dose Route Start Last Admin Trade Name Freq PRN Reason Stop Dose Admin Hydromorphone HCl 1 mg 05/28/20 06:49 05/28/20 07:00 Dilaudid IVPUSH 05/28/20 06:50 1 mg ONETIME ONE Administration Sodium Chloride 1,000 mls @ 999 mls/hr 05/28/20 05:35 05/28/20 06:25 Normal Saline IV 05/28/20 06:35 999 mls/hr .BOLUS ONE Administration Iopamidol 57 ml 05/28/20 06:05 05/28/20 06:18 Isovue-370 (76%) IV 05/28/20 06:06 57 ml . DIRECTED ONE Administration Morphine Sulfate 4 mg 05/28/20 05:36 05/28/20 05:57 Morphine IVPUSH 05/28/20 05:37 4 mg ONETIME ONE Administration Ondansetron HCl 4 mg 05/28/20 05:35 05/28/20 05:55 Zofran IVPUSH 05/28/20 05:36 4 mg ONETIME ONE Administration Pantoprazole Sodium 40 mg 05/28/20 05:36 05/28/20 05:59 Protonix Iv IVPUSH 05/28/20 05:37 40 mg ONETIME ONE Administration Sodium Chloride 10 ml 05/28/20 06:02 05/28/20 05:55 Saline Flush FLUSH 10 ml ASDIRECTED PRN Administration Keep Vein Open Departure - Departure Condition: Good Sepsis Event Note (ED) - Evaluation Sepsis Screening Result: No Definite Risk - Problem List & Annotations (1) Abdominal pain SNOMED Code(s): 02806961 Code(s): R10.9 - UNSPECIFIED ABDOMINAL PAIN Status: Acute Qualifiers: Abdominal location: epigastric Qualified Code(s): R10.13 - Epigastric pain (2) Hematemesis SNOMED Code(s): 0765207 Code(s): K92.0 - HEMATEMESIS Status: Acute Qualifiers: Nausea presence: with nausea Qualified Code(s): K92.0 - Hematemesis (3) Acute alcohol intoxication SNOMED Code(s): 82336758, 66216263 Code(s): F10.929 - ALCOHOL USE, UNSPECIFIED WITH INTOXICATION, UNSPECIFIED Status: Acute Qualifiers: Complication of substance-induced condition: with unspecified complication Qualified Code(s): F10.929 - Alcohol use, unspecified with intoxication, unspecified - Problem List Review Problem List Initiated/Reviewed/Updated: Yes - Assessment/Plan Plan: IV fluid supplementation.,IV Dilaudid and PPI ordered. We will also obtain labs,including a COVID-19 test.
[2020-05-28 07:19] VITALS: BP 131/74; PULSE 89
== END 2020-05-28 08:50 | disposition home or self-care (01) ==
LOC: FB.ED 05:14
DX: K29.70 Gastritis, unspecified, without bleeding (principal); F10.10 Alcohol abuse, uncomplicated; I10 Essential (primary) hypertension; F41.9 Anxiety disorder, unspecified; F32.9 Major depressive disorder, single episode, unspecified; Z20.828 Contact with and (suspected) exposure to other viral communicable diseases; F17.210 Nicotine dependence, cigarettes, uncomplicated; Z79.899 Other long term (current) drug therapy
CPT/HCPCS: 36415; 74177; 80053; 80307; 81001; 82150; 83690; 85025; 87635; 96374; 96375; 99284; C9113; J1170; J2270; J2405; J7030; Q9967; U0002